=== PATIENT | male | born 1990 | race Two or more races ===

== ENCOUNTER 2019-09-08 19:21 | Emergency (ER) | payer SELFPAY ==
[~2019-09-08] VITALS: Ht 170.2 cm; Wt 61.2 kg
[2019-09-08 20:36] VITALS: BP 128/80
== END 2019-09-08 21:45 | disposition home or self-care (01) ==
LOC: ER 19:21
DX: S82.65XA Nondisplaced fracture of lateral malleolus of left fibula, initial encounter for closed fracture (principal); V29.9XXA Motorcycle rider (driver) (passenger) injured in unspecified traffic accident, initial encounter; Y93.55 Activity, bike riding; Y92.89 Other specified places as the place of occurrence of the external cause; Y99.8 Other external cause status
CPT/HCPCS: 29515; 73610; 73630